=== PATIENT | female | born 1975 | race Caucasian/White ===

== ENCOUNTER 2023-09-18 15:59 | Emergency (ER) | payer OTHER, SELFPAY ==
[2023-09-18 16:05] VITALS: BP 146/84; PULSE 91; RESP 18; TEMP 36.8; O2SAT 98; BMI 38.0
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
== END 2023-09-18 18:42 | disposition home or self-care (01) ==
PROVIDERS: Emergency Provider Emergency Medicine Emergency Medical Services; PCP Family Medicine
DX: S22.31XA Fracture of one rib, right side, initial encounter for closed fracture (principal); X50.1XXA Overexertion from prolonged static or awkward postures, initial encounter; Z79.899 Other long term (current) drug therapy; Z79.85 Long-term (current) use of injectable non-insulin antidiabetic drugs
CPT/HCPCS: 71250; 99284